=== PATIENT | female | born 1985 | race Caucasian/White ===

== ENCOUNTER 2018-07-19 00:14 | Emergency (ER) | payer SELFPAY ==
[~2018-07-19] VITALS: Ht 172.7 cm; Wt 78.9 kg
[2018-07-19 00:22] VITALS: Ht 172.7 cm; Wt 78.9 kg
[2018-07-19 01:24] VITALS: BP 131/94
== END 2018-07-19 01:24 | disposition left against medical advice (07) ==
LOC: ED 00:14
DX: Z02.89 Encounter for other administrative examinations (principal)